=== PATIENT | male | born 1980 | race Caucasian/White ===

== ENCOUNTER 2025-01-07 08:39 | Emergency (ER) | payer BC ==
[2025-01-07] MEDS ORDERED: Famotidine 20 MG TAB ONE (08:57)
[2025-01-07] MEDS ORDERED: Aspirin Chewable 81 MG TAB ONE (08:57)
[2025-01-07] MEDS ORDERED: Lidocaine Viscous Sol 2% 15 ml UD Cup ONE (08:57)
[2025-01-07] MEDS ORDERED: Mag-Al 1200 mg/1200 mg/30 ML UDCUP ONE (08:57)
[2025-01-07 09:19] LABS: Troponin I 0.010 ng/mL (< 0.028)
[2025-01-07 09:21] LABS: ALT (SGPT) 68 U/L (Less than 45); AST (SGOT) 68 U/L (11-34); Albumin 4.6 g/dL (3.1-4.5); Alkaline Phosphatase 40 U/L (40-110); Anion Gap 15 mmol/L (10-20); BUN (Urea Nitrogen) 13 mg/dL (8.9-20.6); Bilirubin, Total 0.8 mg/dL (0.3-1.2); Calc. Creatinine Clearance 0 mL/min (70-130); Calcium 9.0 mg/dL (7.8-10.44); Carbon Dioxide 21 mmol/L (22-29); Chloride 107 mmol/L (98-107); Globulin 2.4 g/dL (2.4-3.5); Glucose 92 mg/dL (70-105); Potassium 4.8 mmol/L (3.5-5.1); Sodium 138 mmol/L (136-145)
[2025-01-07 09:22] LABS: Hematocrit 54.2 % (42.0-52.0); Hemoglobin 18.3 g/dL (14.0-18.0); MDiff Complete? YES; Mean Corpuscular Hemoglobin 29.5 pg (27.0-31.0); Mean Corpuscular Volume 87.5 fl (78.0-98.0); Platelet Count 261 10x3/uL (130-400); Red Blood Cell (RBC) Count 6.19 mill/uL (4.70-6.10); White Blood Cell (WBC) Count 8.5 10x3/uL (4.8-10.8)
== END 2025-01-07 09:51 | disposition home or self-care (01) ==
LOC: MADERS 08:39
DX: R07.81 Pleurodynia (principal); I10 Essential (primary) hypertension; F17.220 Nicotine dependence, chewing tobacco, uncomplicated
CPT/HCPCS: 71045; 80053; 83880; 84484; 85025; 93005